=== PATIENT | female | born 2000 | race Caucasian/White ===

== ENCOUNTER 2021-05-30 22:58 | Emergency (ER) | payer SELFPAY ==
[2021-05-30] MEDS ORDERED: MORPHINE 4 MG/ML SYR ONE (23:12)
[2021-05-30] MEDS ORDERED: ONDANSETRON 4 MG/2 ML VIAL ONE (23:12)
[2021-05-30] MEDS ORDERED: TETANUS & DIPHTHERIA TOX,ADULT 0.5 ML VIAL ONE (23:12)
[2021-05-30] MEDS ORDERED: LIDOCAINE 1% MPF 30 ML VIAL ONE (23:45)
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
[2021-05-31 01:17] VITALS: TEMP 98.5
[2021-05-31 01:22] VITALS: BP 130/84; O2SAT 100
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
== END 2021-05-31 00:54 | disposition home or self-care (01) ==
LOC: ER 22:58
PROC: 0JQR0ZZ Repair Left Foot Subcutaneous Tissue and Fascia, Open Approach (ICD-10-PCS; principal; 2021-05-31)
DX: S92.332A Displaced fracture of third metatarsal bone, left foot, initial encounter for closed fracture (principal); S92.342A Displaced fracture of fourth metatarsal bone, left foot, initial encounter for closed fracture; S91.312A Laceration without foreign body, left foot, initial encounter; V87.8XXA Person injured in other specified noncollision transport accidents involving motor vehicle (traffic), initial encounter; Z23 Encounter for immunization
CPT/HCPCS: 90471; 90714; 96374; 96375; 99285; J2405

== ENCOUNTER 2021-11-22 05:12 | Emergency (ER) | payer SELFPAY ==
--- NOTE | 2021-11-22 06:33 | ER ---
Nurse's Notes [facility] Name: Gracia Wu Age: 21 yrs Sex: Female : 2000 Arrival Date: 11/22/2021 Time: 05:17 Bed 20 Private MD: Diagnosis: Presentation: 11/22 05:17 Chief complaint: Patient states: tachycardia after vaping. Coronavirus screen: Vaccine ronak status: Patient reports receiving the 2nd dose of the covid vaccine. Ebola Screen: Patient negative for fever greater than or equal to 101.5 degrees Fahrenheit, and additional compatible Ebola Virus Disease symptoms Patient denies exposure to infectious person. Patient denies travel to an Ebola-affected area in the 21 days before illness onset. Initial Sepsis Screen: Does the patient meet any 2 criteria? No. Patient's initial sepsis screen is negative. Does the patient have a suspected source of infection? No. Patient's initial sepsis screen is negative. Risk Assessment: Do you want to hurt yourself or someone else? Patient reports no desire to harm self or others. Onset of symptoms was November 22, 2021. 05:17 Method Of Arrival: EMS ronak 05:17 Acuity: EZRA 3 ronak Triage Assessment: 05:22 General: Appears in no apparent distress. Pain: Denies pain. ronak 06:16 General: Behavior is calm, cooperative. 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 - Social history:: Smoking status: Reported history of juuling and/or vaping. Screenin:27 Abuse screen: Denies threats or abuse. Denies injuries from another. Nutritional ronak screening: No deficits noted. Tuberculosis screening: No symptoms or risk factors identified. Fall Risk None identified. Assessment: 05:24 Reassessment: Patient appears in no apparent distress at this time. The pt is 21 yrs ronak old came in via EMS. She c/o pressure to her chest after vaping. She appears to be in NAD. Her boyfriend is now at bedside. EMS' ekg showed sinus tach. The pt is visiting with her boyfriend. 06:13 Reassessment: The pt's boyfriend came out of the room and said that the pt wanted to ronak leave. I asked if she might wait, as the MD was rounding. While I was in another pt's room, the pt and her boyfriend ambulated to the front lobby and out the door, with a steady gait. Vital Signs: 05:17 BP 120 / 75; Pulse 105; Resp 16; Pulse Ox 100% on R/A; ronak 05:22 BP 120 / 75; Pulse 105; Resp 16; Temp 98.2; Pulse Ox 100% on R/A; ronak ED Course: 05:17 Patient arrived in ED. tw5 05:17 Lilian Sabillon, RN is Primary Nurse. ronak 05:20 Triage completed. ronak 05:27 Bed in low position. Call light in reach. deputy clerk of court on. Pulse ox on. NIBP on. ronak 05:56 Nima Painting MD is Attending Physician. kdr 06:15 Arm band placed on right wrist. ronak 06:16 No provider procedures requiring assistance completed. ronak Administered Medications: No medications were administered Medication: 06:18 VIS not applicable for this client. ronak Outcome: 06:17 Condition: stable ronak 06:32 Patient left the ED. ronak Signatures: Nima Painting MD MD kdr Rashid Lissette tw5 Lilian Sabillon, RN RN ronak
[2021-11-22 06:38] VITALS: BP 120/75; O2SAT 100
[2021-11-22 06:40] VITALS: TEMP 98.2
== END 2021-11-22 06:32 | disposition left against medical advice (07) ==
LOC: ER 05:12
DX: Z53.21 Procedure and treatment not carried out due to patient leaving prior to being seen by health care provider (principal)
CPT/HCPCS: 99284

== ENCOUNTER 2021-12-24 22:06 | Emergency (ER) | payer SELFPAY | END 2021-12-24 23:07 | disposition left against medical advice (07) | LOC: ER 22:06 | DX: Z02.89 Encounter for other administrative examinations (principal) ==

== ENCOUNTER 2022-02-08 01:05 | Emergency (ER) | payer OTHER, SELFPAY ==
[2022-02-08] MEDS ORDERED: NA CHLORIDE 0.9% 1,000 ML ONE (02:14)
[2022-02-08 02:23] LABS: SARS-CoV-2 Antigen Rapid Res Negative (Negative)
[2022-02-08 02:23] LABS: Absolute Lymphocytes (CBC) 2.8 K/uL (0.7-4.9); Hematocrit 30.5 % (36.0-45.0); Lymphocytes % 28.6 % (15.3-44.8); MCV 80.2 fL (80-100); MPV 6.8 fL (7.6-11.3)
[2022-02-08 02:48] LABS: ALT/SGPT 16 U/L (12-78); AST/SGOT 9 U/L (15-37); Albumin 3.1 g/dL (3.4-5.0); Alkaline Phosphatase 42 U/L (45-117); BUN Blood Urea Nitrogen 6 mg/dL (7-18); Bicarbonate 22 mmol/L (21-32); Bilirubin Total 0.2 mg/dL (0.2-1.0); Glomerular Filtration Rate 147 ml/min (=/>90); Glucose Level 83 mg/dL (74-106); Magnesium 2.1 mg/dL (1.8-2.4); NT PRO-BNP 14 pg/mL (<125); Potassium 3.7 mmol/L (3.5-5.1); Protein, Total 7.2 g/dL (6.4-8.2); Sodium Level 136 mmol/L (136-145)
[2022-02-08 02:51] LABS: Bilirubin Direct < 0.1 mg/dL (0-0.2); Troponin High Sensitivity < 3.0 pg/mL (<58.9)
--- NOTE | 2022-02-08 02:58 | ER ---
Nurse's Notes [facility] Name: Gracia Wu Age: 21 yrs Sex: Female : 2000 Arrival Date: 02/08/2022 Time: 01:08 Bed 17 Private MD: Diagnosis: 12 weeks gestation of ;Palpitations Presentation: 02/08 01:19 Chief complaint: Patient states: pt states her heart has been racing and she feels bb short of breath x 3 days pt is 12 weeks started on unknown antibiotic yesterday for a bladder infection. Coronavirus screen: At this time, the client does not indicate any symptoms associated with coronavirus-19. Ebola Screen: No symptoms or risks identified at this time. Initial Sepsis Screen: Does the patient meet any 2 criteria? No. Patient's initial sepsis screen is negative. Does the patient have a suspected source of infection? No. Patient's initial sepsis screen is negative. Risk Assessment: Do you want to hurt yourself or someone else? Patient reports no desire to harm self or others. Onset of symptoms was February 04, 2022. 01:19 Method Of Arrival: Ambulatory bb 01:19 Acuity: EZRA 3 bb Triage Assessment: 01:25 General: Appears in no apparent distress. Behavior is appropriate for age. Respiratory: ke1 Reports shortness of breath on exertion Onset: The symptoms/episode began/occurred X 3 DAYS, the patient has mild shortness of breath. 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 - Social history:: Smoking status: Patient/guardian denies using tobacco, Stopped _ months ago 3. Screenin:20 Abuse screen: Denies threats or abuse. Nutritional screening: No deficits noted. ke1 Tuberculosis screening: No symptoms or risk factors identified. Fall Risk None identified. Assessment: 01:30 Pain: Denies pain. Cardiovascular: Rhythm is. Respiratory: Airway. Respiratory: ke1 Respiratory effort is even, unlabored, Breath sounds are clear bilaterally. 02:00 Cardiovascular: Rhythm is 1ST DEGREE AV BLOCK. ke1 03:21 Reassessment: New order US before discharge. ke1 Vital Signs: 01:19 BP 132 / 78; Pulse 90; Resp 16 S; Temp 99.5(O); Pulse Ox 99% on R/A; Weight 77.11 kg bb (R); Height 5 ft. 3 in. (160.02 cm) (R); Pain 0/10; 03:35 BP 128 / 76; Pulse 89; Resp 18; Temp 98.9; Pulse Ox 100% ; Pain 0/10; ke1 01:19 Body Mass Index 30.11 (77.11 kg, 160.02 cm) bb Vitals: 03:12 Heart Tones 89 Md to order ultrasound. ke1 ED Course: 01:08 Patient arrived in ED. bp1 01:21 Triage completed. bb 01:21 Arm band placed on Patient placed in an exam room, on a stretcher, on pulse oximetry. bb Family accompanied patient. 01:34 Daniela Sierra RN is Primary Nurse. ke1 01:38 Delfino Wilde MD is Attending Physician. osmani 01:50 Inserted saline lock: 20 gauge in right antecubital area, using aseptic technique. ke1 02:05 Flu Sent. ke1 02:05 SARS RAPID Sent. ke1 02:27 XRAY Chest (1 view) In Process Unspecified. EDMS 02:44 US Extremity Venous W Compression Killian In Process Unspecified. EDMS 02:57 Clayton Baker MD is Referral Physician. osmani 03:21 Patient has correct armband on for positive identification. Placed in gown. Bed in low ke1 position. 03:35 No provider procedures requiring assistance completed. IV discontinued. ke1 Administered Medications: 02:58 Drug: NS 0.9% 1000 ml Route: IV; Rate: 1 bolus; Site: right antecubital; ke1 03:37 Follow up: IV Status: Completed infusion ke1 Medication: 03:35 VIS not applicable for this client. ke1 Outcome: 02:57 Discharge ordered by . osmani 03:35 Discharged to home ambulatory. ke1 03:35 Condition: good 03:35 Discharge instructions given to patient. 03:38 Patient left the ED. ke1 Signatures: Dispatcher [employer] EDMS Delfino Wilde MD MD cha Ballard, Brenda, RN RN bb PanFrancia carlton Kouassi, RN RN ke1 Corrections: (The following items were deleted from the chart) 02:58 01:10 NS 0.9% 1000 ml IV at 1 bolus in right antecubital ke1 ke1 03:21 01:25 Respiratory: Reports shortness of breath on exertion Onset: The symptoms/episode ke1 began/occurred today, the patient has mild shortness of breath ke1
--- NOTE | 2022-02-08 02:58 | EDPHYS ---
Physician Documentation [facility] Name: Gracia Wu Age: 21 yrs Sex: Female : 2000 Arrival Date: 02/08/2022 Time: 01:08 Bed 17 Private MD: GAVIN Physician Delfino Wilde HPI: 02/08 01:47 This 21 yrs old Female presents to ER via Ambulatory with complaints of Fast osmani HR, Shortness Of Breath. 01:47 The patient has shortness of breath at rest, with light activity. Onset: The osmani symptoms/episode began/occurred 2 day(s) ago. Duration: The symptoms are continuous, and are steadily getting worse. Duration: The symptoms are intermittent, with episodes lasting seconds at a time. The patient's shortness of breath has no apparent modifying factors. Associated signs and symptoms: Pertinent positives: This patient does not have any pertinent positive signs or symptoms associated with shortness of breath. Pertinent negatives: non-productive cough. Severity of symptoms: At their worst the symptoms were mild moderate in the emergency department the symptoms are unchanged. The patient has not experienced similar symptoms in the past. 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 - Social history:: Smoking status: Patient/guardian denies using tobacco, Stopped _ months ago 3. ROS: 01:48 Constitutional: Negative for fever, chills, and weight loss, Eyes: Negative for injury, osmani pain, redness, and discharge, ENT: Negative for injury, pain, and discharge, Neck: Negative for injury, pain, and swelling, Abdomen/GI: Negative for abdominal pain, nausea, vomiting, diarrhea, and constipation, Back: Negative for injury and pain, : Negative for injury, bleeding, discharge, and swelling, MS/Extremity: Negative for injury and deformity, Skin: Negative for injury, rash, and discoloration, Neuro: Negative for headache, weakness, numbness, tingling, and seizure, Psych: Negative for depression, anxiety, suicide ideation, homicidal ideation, and hallucinations, Allergy/Immunology: Negative for hives, rash, and allergies, Endocrine: Negative for neck swelling, polydipsia, polyuria, polyphagia, and marked weight changes, Hematologic/Lymphatic: Negative for swollen nodes, abnormal bleeding, and unusual bruising. 01:48 Cardiovascular: Positive for chest pain, with cough. 01:48 Respiratory: Positive for cough. Exam: 01:48 Constitutional: This is a well developed, well nourished patient who is awake, alert, osmani and in no acute distress. Head/Face: Normocephalic, atraumatic. Eyes: Pupils equal round and reactive to light, extra-ocular motions intact. Lids and lashes normal. Conjunctiva and sclera are non-icteric and not injected. Cornea within normal limits. Periorbital areas with no swelling, redness, or edema. ENT: Nares patent. No nasal discharge, no septal abnormalities noted. Tympanic membranes are normal and external auditory canals are clear. Oropharynx with no redness, swelling, or masses, exudates, or evidence of obstruction, uvula midline. Mucous membranes moist. Neck: Trachea midline, no thyromegaly or masses palpated, and no cervical lymphadenopathy. Supple, full range of motion without nuchal rigidity, or vertebral point tenderness. No Meningismus. Chest/axilla: Normal chest wall appearance and motion. Nontender with no deformity. No lesions are appreciated. Cardiovascular: Regular rate and rhythm with a normal S1 and S2. No gallops, murmurs, or rubs. Normal PMI, no JVD. No pulse deficits. Respiratory: Lungs have equal breath sounds bilaterally, clear to auscultation and percussion. No rales, rhonchi or wheezes noted. No increased work of breathing, no retractions or nasal flaring. Abdomen/GI: Soft, non-tender, with normal bowel sounds. No distension or tympany. No guarding or rebound. No evidence of tenderness throughout. Back: No spinal tenderness. No costovertebral tenderness. Full range of motion. Skin: Warm, dry with normal turgor. Normal color with no rashes, no lesions, and no evidence of cellulitis. MS/ Extremity: Pulses equal, no cyanosis. Neurovascular intact. Full, normal range of motion. Neuro: Awake and alert, GCS 15, oriented to person, place, time, and situation. Cranial nerves II-XII grossly intact. Motor strength 5/5 in all extremities. Sensory grossly intact. Cerebellar exam normal. Normal gait. Psych: Awake, alert, with orientation to person, place and time. Behavior, mood, and affect are within normal limits. 02:35 ECG was reviewed by the Attending Physician. [facility] Vital Signs: 01:19 BP 132 / 78; Pulse 90; Resp 16 S; Temp 99.5(O); Pulse Ox 99% on R/A; Weight 77.11 kg bb (R); Height 5 ft. 3 in. (160.02 cm) (R); Pain 0/10; 03:35 BP 128 / 76; Pulse 89; Resp 18; Temp 98.9; Pulse Ox 100% ; Pain 0/10; ke1 01:19 Body Mass Index 30.11 (77.11 kg, 160.02 cm) bb MDM: 01:38 Patient medically screened. [facility] 01:49 Differential diagnosis: Anxiety Reaction asthma, anxiety, gastritis, hiatal hernia, osmani peptic ulcer disease, pneumonia, pulmonary embolus, stable angina, pneumonia, reactive airway disease, Unstable Angina. Antibiotic administration: Not indicated, the patient does not have an appreciated infiltrate. HEART Score: History: Slightly Suspicious (0), ECG: Normal (0), Age: < or = 45 years (0), Risk Factors: No Risk Factors Known (0), Troponin: < or = 1 x Normal Limit (0). The patient's Wells Deep Vein Thrombosis Score was calculated as follows: Total Score: 0. This patient was found to be at low risk for a deep vein thrombosis by using the Well's assessment criteria Total Score: 0-2 Pts- Low Risk. The patient's pulmonary embolism risk score was calculated as follows: the patients heart rate is greater than 100 beats per minute (1.5 Pts) Total Score: 0-2 points. This patient was found to be at low risk for a pulmonary embolism by using the Well's assessment criteria. NAWAF Risk Score: TOTAL SCORE = 0. Immunization status:. Data reviewed: vital signs, nurses notes, lab test result(s), EKG, radiologic studies, CT scan, plain films. 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 Test interpretation: by ED physician or midlevel provider: ECG, plain radiologic studies. Counseling: I had a detailed discussion with the patient and/or guardian regarding: the historical points, exam findings, and any diagnostic results supporting the discharge/admit diagnosis, lab results, radiology results, the need for outpatient follow up, for definitive care, a money room supervisor, an OB/Gyne specialist. 02/08 01:47 Order name: Basic Metabolic Panel; Complete Time: 03:24 osmani 02/08 01:47 Order name: CBC with Diff; Complete Time: 02:55 [facility] 02/08 01:47 Order name: D-Dimer; Complete Time: 02:55 [facility] 02/08 01:47 Order name: LFT's; Complete Time: 03:24 [facility] 02/08 01:47 Order name: Magnesium; Complete Time: 03:24 [facility] 02/08 01:47 Order name: NT PRO-BNP; Complete Time: 03:24 [facility] 02/08 01:47 Order name: Troponin HS; Complete Time: 03:24 [facility] 02/08 01:47 Order name: XRAY Chest (1 view) [facility] 02/08 01:47 Order name: SARS RAPID; Complete Time: 02:55 [facility] 02/08 01:47 Order name: Flu [facility] 02/08 01:47 Order name: TSH; Complete Time: 03:24 [facility] 02/08 01:59 Order name: US Extremity Venous W Compression Killian 02/08 02:53 Order name: T4 Free; Complete Time: 03:24 EDMS 02/08 01:47 Order name: EKG; Complete Time: 01:56 [facility] 02/08 01:47 Order name: Cardiac monitoring; Complete Time: 02:58 [facility] 02/08 01:47 Order name: EKG - Nurse/Tech; Complete Time: 02:58 [facility] 02/08 01:47 Order name: IV Saline Lock; Complete Time: 02:58 [facility] 02/08 01:47 Order name: Labs collected and sent; Complete Time: 02:58 [facility] 02/08 01:47 Order name: O2 Per Protocol; Complete Time: 02:04 [facility] 02/08 01:47 Order name: O2 Sat Monitoring; Complete Time: 02:04 [facility] 02/08 01:47 Order name: FHT's; Complete Time: 02:58 [facility] EC:35 Rate is 73 beats/min. Rhythm is regular. QRS Stevens is Normal. OH interval is prolonged osmani at 110 msec. QRS interval is normal. QT interval is normal. No Q waves. T waves are Normal. No ST changes noted. Clinical impression: NSR w/ Non-specific ST/T Changes, 1st degree heart block, and No evidence of ischemia. Interpreted by me. Reviewed by me. Administered Medications: 02:58 Drug: NS 0.9% 1000 ml Route: IV; Rate: 1 bolus; Site: right antecubital; ke1 03:37 Follow up: IV Status: Completed infusion ke1 Disposition Summary: 02/08/22 02:57 Discharge Ordered Location: Home osmani Problem: new osmani Symptoms: have improved osmani Condition: Stable osmani Diagnosis - 12 weeks gestation of osmani - Palpitations osmani Followup: osmani - With: Private Physician - When: 2 - 3 days - Reason: Recheck today's complaints, Continuance of care, Re-evaluation by your physician Followup: osmani - With: - When: 2 - 3 days - Reason: Recheck today's complaints, Continuance of care, Re-evaluation by your physician Discharge Instructions: - Discharge Summary Sheet osmani - Palpitations osmani - Care osmani - Palpitations, [id number] osmani Forms: - Medication Reconciliation Form osmani - Thank You Letter osmani - Antibiotic Education osmani - Prescription Opioid Use osmani Signatures: Dispatcher [employer] EDMS Delfino Wilde MD MD cha Ballard, Brenda, RN RN aDniela Manzanares RN RN ke1 Corrections: (The following items were deleted from the chart) 03:34 03:14 Transvaginal Ob+US.RAD.BRZ ordered. EDMS EDMS
[2022-02-08 03:46] VITALS: BP 128/76; TEMP 98.9; O2SAT 100
--- NOTE | 2022-02-08 14:31 | EKG ---
Test Date: 2022-02-08 Test Time: 02:29:22 Sculpture Instructor: CATHY MEASUREMENT RESULTS: Intervals: Rate: 73 FL: 210 QRSD: 80 QT: 394 QTc: 434 [place]: P: 61 FL: 210 QRS: 90 T: 60 INTERPRETIVE STATEMENTS: Sinus rhythm with 1st degree AV block Rightward axis Borderline ECG No previous ECG available for comparison Electronically Signed On 02-08-22 14:30:19 CDT by Josh Morales
--- NOTE | 2022-02-08 19:29 | RAD REPORT ---
EXAM DESCRIPTION: US - Extrem Venous W Compress Killian - 02/08/2022 3:14 am CLINICAL HISTORY: The patient is 21 years old and is Female; PAIN TECHNIQUE: Real-time duplex ultrasound scan of the bilateral lower extremity veins integrating B-mod e two-dimensional vascular structure, Doppler spectral analysis, color flow Doppler imaging and compr ession. COMPARISON: No relevant prior studies available. FINDINGS: Right deep veins: Unremarkable. No DVT in the visualized common femoral, femoral, or p opliteal veins. The veins demonstrate normal color flow, are normally compressible where visualized , with normal phasic flow and/or augmentation response. Left deep veins: Unremarkable. No DVT in the visualized common femoral, femoral, or popliteal v eins. The veins demonstrate normal color flow, are normally compressible where visualized, with nor mal phasic flow and/or augmentation response. Soft tissues: No acute findings. IMPRESSION: No evidence of DVT in the bilateral lower extremity veins. Electronically signed by: Shimon Tristan MD 02/08/2022 2:56 AM CDT Due to temporary technical issues with the PACS/Fluency reporting system, reports are being signed by the in house radiologists without review as a courtesy to insure prompt reporting. The interpreting radiologist is fully responsible for the content of the report.
--- NOTE | 2022-02-08 19:34 | RAD REPORT ---
EXAM DESCRIPTION: RAD - Chest Single View - 02/08/2022 2:25 am CLINICAL HISTORY: The patient is 21 years old and is Female; COUGH TECHNIQUE: Frontal view of the chest. COMPARISON: No relevant prior studies available. FINDINGS: Lungs: Unremarkable. No consolidation. Pleural space: Unremarkable. No pneumothorax. Heart: Unremarkable. Mediastinum: Unremarkable. Bones/joints: Unremarkable. IMPRESSION: No acute findings in the chest. Electronically signed by: Shimon Tristan MD 02/08/2022 2:51 AM CDT Due to temporary technical issues with the PACS/Fluency reporting system, reports are being signed by the in house radiologists without review as a courtesy to insure prompt reporting. The interpreting radiologist is fully responsible for the content of the report.
== END 2022-02-08 03:38 | disposition home or self-care (01) ==
LOC: ER 01:05
DX: O99.411 Diseases of the circulatory system complicating pregnancy, first trimester (principal); R00.2 Palpitations; Z3A.12 12 weeks gestation of pregnancy; Z20.822 Contact with and (suspected) exposure to COVID-19
CPT/HCPCS: 93005; 85025; 80048; 36415; 83735; 85379; 80076; 84443; 84484; 84439; 83880; 87804 ×2; 71045; 93970; 96360; 99284; 87811; J7030